=== PATIENT | male | born 1955 | race Caucasian/White ===

== ENCOUNTER 2019-01-14 15:19 | Emergency (ER) | payer MEDICAID, SELFPAY ==
[2019-01-14 15:20] VITALS: BP 134/66; PULSE 94; RESP 18; TEMP 36.4; O2SAT 93; BMI 32.7
--- NOTE | 2019-01-14 15:36 | ED.VISSUMM ---
- ER Visit Summary Date of Service: 01/14/19 Chief Complaint: Diffuse body rash History of Present Illness: The patient is a 63 M who states that he began to have a itchy rash on his right leg. He states that is now spread over his entire body. 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 States he went to his doctor was given itchy pills. states that she tried some hydrocortisone cream. He states now his feet are weeping and staying. He is not wearing socks. When asked what medications he is on he tells me he is in the computer. I informed him that we are not likely the clinic and we have a different system. He then hands me a piece of paper and tells me to go and do my thing. I asked if he wants me to continue asking questions or do my exam and he states just go and do something to get me better. Physical Examination: Afebrile vital signs are stable Patient has an itchy raised rash seems to coalesce on his feet. There is a exudate around the toes and the heels. The rest of his body shows discrete lesions that are heavily excoriated and slightly raised. It is present on arms legs trunk back. Emergency Department Course and Treatment: I think this is probably a contact dermatitis but now has a secondary infection of the feet. For the feet and going to write for Keflex. He is to keep his feet cool and dry. He is to wash with soap and water. I am going to give him a dose of Kenalog and a tapering dose of prednisone. I will refer him to dermatology. Impression: 1. Contact dermatitis with secondary bacterial infection This note was generated with [employer] dictation software. It may contain incorrect words, spelling, and punctuation that were not noted in review of the chart prior to signing ED Disposition - Plan for ED Patient: Disposition: Home or Assisted Living Instructions: Contact Dermatitis Prescriptions: Cephalexin [Keflex] 500 mg PO Q6 #40 cap Prescription Printed Prednisone 10 mg PO DAILY #63 tab Prescription Printed Referrals: Terry Plata MD [Primary Care Provider] - As soon as possible Cristina Keller [NON-STAFF] - As soon as possible Additional Instructions: You need to keep the feet cool and dry. Wash at least once or twice a day with soap and water. You need to see dermatology as soon as possible. I would also recommend you seen your family doctor as soon as possible. I recommend taking Benadryl 25 mg every 8 hours for itching.
[2019-01-14] MEDS: Triamcinolone Acetonide 40 MG/ML Vial 80 MG IM (16:05)
== END 2019-01-14 16:16 | disposition home or self-care (01) ==
PROVIDERS: Emergency Provider Emergency Medicine; Family Provider Family Medicine; PCP Family Medicine
DX: L25.9 Unspecified contact dermatitis, unspecified cause (principal); A49.9 Bacterial infection, unspecified; I48.91 Unspecified atrial fibrillation; I10 Essential (primary) hypertension
CPT/HCPCS: 96372; 99282

== ENCOUNTER 2019-04-24 12:52 | Emergency (ER) | payer MEDICAID, SELFPAY ==
[2019-04-24 12:53] VITALS: BP 136/80; PULSE 91; RESP 16; TEMP 36.7; O2SAT 95; BMI 34.7
[2019-04-24 13:24] VITALS: BP 140/75; PULSE 85; RESP 15; O2SAT 98
--- NOTE | 2019-04-24 13:29 | ED.VIS.GEN ---
History of Present Illness Chief Complaint: Rash Informant: Patient Onset: Days Context: Sudden Onset Timing: Continuous Quality: Puritic erythematous rash Location: Generalized Current Severity: Mild Maximum Severity: Moderate Worsened by: Itching Relieved by: Nothing Associated Symptoms: Areas of excoriation Narrative: Patient is a 63-year-old male who was seen in December/January for similar presentation. He was diagnosed with contact dermatitis with secondary infection. 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 He complains of pruritic erythematous rash. There is multiple areas of excoriation and worsening of the erythema. He has no exposure to the outdoors i.e. poison traci, poison sumac etc. patient denies history of benign prostatic hypertrophy or trouble urinating. Prior similar symptoms: Yes Recent Illness/Hospitalization: No - Past Medical History (1) No significant past medical history Status: Acute Past Medical History - Allergies and Home Meds Allergies/Adverse Reactions: Allergies Penicillins [PCN] Allergy (Verified 04/24/19 12:54) Unknown Primary Care Physician: Terry Plata MD [Primary Care Provider] - Prior records reviewed: Yes Surgical History: no surgical history Lives: Spouse/ Significant Other Smoking Status: Former smoker Alcohol: None Drugs: None Review of Systems General: Denies: Chills, Fever, Malaise, Sweats Cardiovascular: Denies: Chest pain, Palpitations Respiratory: Denies: Dyspnea, Cough, Dyspnea on exertion Skin: Reports: Rash, Wounds - Cuate to scratching. Denies: Abscess, Abrasions Hematologic: Denies: Easy bruising, Easy bleeding Allergy: Denies: Uticaria, Swelling of the mouth, Swelling of the tongue Physical Exam Vital Signs/Narrative: Vital Signs Temp Pulse Resp BP Pulse Ox 04/24/19 13:24 85 15 140/75 H 98 04/24/19 12:53 98.1 F 91 16 136/80 H 95 Inital Vital Signs reviewed: Yes General: Well nourished, Well developed, No Acute Distress Head: Normocephalic, Atraumatic Eyes: Perrl, EOMI. Negative for: Pale conjunctiva, Scleral icterus ENT: Moist mucous membranes, No rhinorrhea Neck: Supple, Nontender, No lymphadenopathy, No JVD Cardiovascular: Regular rate, Regular rhythm, No murmurs, Normal S1, Normal S2 Respiratory: No distress, CTA bilaterally, Chest nontender Extremities: No edema Skin: Normal color, Rash - Inflammatory skin lesions with areas of excoriation and Neurological: Alert, Oriented x3, Cranial nerves II-XII grossly intact, Normal Strength, Normal Sensation Psychological: Normal affect, Normal Mood Diagnostic/Tx/Re-eval - Medical Decision Making Patient has evidence of contact dermatitis with secondary infection secondary to areas of excoriation. Since patient is alert to penicillin he was prescribed doxycycline. He also was placed on tapering dose of prednisone. ED Disposition - Plan for ED Patient: Disposition: Home or Assisted Living Diagnosis: Contact dermatitis, Cellulitis Instructions: Cellulitis, Contact Dermatitis Prescriptions: Doxycycline 100 mg PO BID #14 cap Prescription Printed Prednisone 10 mg PO UD #33 tab Prescription Printed Referrals: Terry Plata MD [Primary Care Provider] - 3-5 Days
[2019-04-24 13:51] VITALS: BP 139/80; PULSE 80; RESP 14; O2SAT 98
[2019-04-24] MEDS: Doxycycline 100 MG CAPSULE PO (13:59)
[2019-04-24] MEDS: hydrOXYzine 10 MG Tablet PO (13:59)
[2019-04-24] MEDS: predniSONE 20 MG Tablet 60 MG PO (13:59)
== END 2019-04-24 14:00 | disposition home or self-care (01) ==
LOC: ED 13:56
PROVIDERS: Emergency Provider Emergency Medicine; Family Provider Family Medicine; PCP Family Medicine
DX: L25.9 Unspecified contact dermatitis, unspecified cause (principal); L03.90 Cellulitis, unspecified; Z88.0 Allergy status to penicillin; Z87.891 Personal history of nicotine dependence
CPT/HCPCS: 99283

== ENCOUNTER → 2019-07-11 09:45 | Outpatient (CLI) | payer MEDICAID, SELFPAY ==
[2019-07-11 12:26] LABS: Absolute Lymphocyte Count 1.79 X10^3/uL (0.83-4.51); Absolute Neutrophil Count 6.7 X10^3/uL (2.0-7.7); Basophil% 0.9 % (0-1); Eosinophil# 1.14 X10^3/uL; Eosinophils% 10.6 % (0-5); Hematocrit 42.7 % (40-54); Hemoglobin 13.9 g/dL (13.0-16.5); Lymphocyte # 1.79 X10^3/ul (4.0); Lymphocyte % 16.6 % (19-41); Mean Corp Hgb Conc 32.6 g/dL (32-36); Mean Corpuscular Volume 86.1 fL (80-94); Mean Platelet Vol. 9.2 fl (6.2-12.0); Monocyte# 1.02 X10^3/uL; Monocyte% 9.5 % (0-10); NRBC Flagged by Analyzer 0 % (0-5); Neutrophil # 6.71 X10^3/uL (2.7-7.7); Neutrophil % 62.1 % (47-70); Platelet Count 334 K/mm3 (150-450); RBC Distribution Width SD 40.4 fl (35.1-43.9); Red Blood Count 4.96 M/mm3 (4.6-6.2); White Blood Count 10.8 K/mm3 (4.4-11.0)
[2019-07-11 12:42] LABS: ALB/GLOB Ratio 0.8 RATIO (0.9-2.4); AST(SGOT) 18 U/L (15-37); Alanine Aminotransfer ALT/SGPT 24 U/L (16-61); Albumin, Serum 3.6 g/dL (3.2-5.0); Alkaline Phosphatase 91 U/L (45-117); Anion Gap 10 (5-15); BUN 7 mg/dL (7-18); BUN/Creat Ratio 8.7 RATIO (10-20); Calcium,Total 8.7 mg/dL (8.5-10.1); Chloride 95 mmol/L (98-107); EST Glomerular Filtration Rate 104 mL/min (>60); Est Glom Filt Rate - Afr Amer 126 mL/min (>60); Globulin 4.7 g/dL (2.2-4.2); Glucose 148 mg/dL (74-106); Potassium 3.5 mmol/L (3.5-5.1); Protein, Total 8.3 g/dL (6.4-8.2); Sodium Level 130 mmol/L (136-145)
== END ==
PROVIDERS: Family Provider Family Medicine; PCP Family Medicine
DX: L30.9 Dermatitis, unspecified (principal)
CPT/HCPCS: 36415; 80053; 85025

== ENCOUNTER 2025-04-25 11:00 | Inpatient (IN) | payer MEDICARE, MEDICAID, SELFPAY ==
[2025-04-25] VITALS (9 sets, daily range): BP systolic 118–158; BP diastolic 79–97; PULSE 76–100; RESP 14–20; TEMP 35.8–36.4; O2SAT 91–99; BMI 28.3; BMI 27.2
--- NOTE | 2025-04-25 11:22 | ED.RN ---
pt. states 'i aint fucking staying here over night
--- NOTE | 2025-04-25 11:31 | EX.ED.DYSGE1 ---
HPI History of Present Illness Chief Complaint: Head Injury Narrative Narrative: Patient is a 69-year-old male presenting to the emergency department for change in behavior. Brought in by family friend helps care for himself. History was obtained from primary care doctor, Dr. Plata, who called over prior to the evaluation of the patient. Over the past few months the patient has been acting differently per family friend/access control officer. States that before he started acting differently he did trip and fall on his trailer steps striking the front of his head he did not have any imaging done of his head. Over the past week she states that he has been acting more bizarre and confused. She does not think he has been taking his medications. Patient unable to provide history. 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 Denies any other drug use. PFSH PFS Home Medications ?Medication ?Instructions ?Recorded ?Last Taken ?Type amlodipine 10 mg tablet 10 mg PO DAILY 04/25/25 Unknown History aspirin 81 mg tablet,delayed 81 mg PO DAILY 04/25/25 Unknown History release atorvastatin 20 mg tablet 20 mg PO DAILY 04/25/25 Unknown History digoxin 125 mcg (0.125 mg) tablet 125 mcg PO DAILY 04/25/25 Unknown History lisinopril 40 mg tablet 40 mg PO DAILY 04/25/25 Unknown History metformin 500 mg tablet 500 mg PO BID 04/25/25 Unknown History metoprolol succinate 200 mg 200 mg PO DAILY 04/25/25 Unknown History tablet,extended release 24 hr Allergy/AdvReac Type Severity Reaction Status Date / Time Penicillins (PCN) Allergy Unknown Verified 04/25/25 11:02 Social History Smoking Status: Former smoker ROS ROS ED ROS Narrative see HPI EXAM Physical Exam Narrative Exam Narrative: Vital signs: Reviewed General: Alert and orientedx1. No acute distress. Disheveled appearing HEENT: Head is normocephalic and atraumatic, sinuses nontender, pupils 2 mm equal round and reactive. Nares are patent. Oropharynx and throat exams normal. Neck: Supple without lymphadenopathy nontender Cardiovascular: Regular rate and rhythm, no murmurs. No rubs or gallops. Normal S1 and S2 Respiratory: Clear to auscultation bilaterally. No wheezes, rales, rhonchi Abdominal: Soft and nontender. Normal bowel sounds. No guarding or rebound. Nonsurgical abdomen Extremities: No tenderness. No bruising. Normal range of motion. Normal sensation. Skin: No rash or redness. Neurological: Cranial nerves II through XII are grossly intact. Normal strength and sensation. Does not participate in cerebellar testing. The rest of the physical exam is unremarkable Const Vital Signs: 04/25/25 11:02 04/25/25 11:17 04/25/25 11:31 Temperature 96.4 F L Temperature Source Temporal Pulse Rate 82 Respiratory Rate 18 Blood Pressure 158/97 H 143/97 H Blood Pressure Mean 117 112 Blood Pressure Source Blood Pressure Position Blood Pressure Location Pulse Ox 97 98 Oxygen Delivery Method Room Air 04/25/25 11:39 Temperature Temperature Source Pulse Rate 77 Respiratory Rate 20 H Blood Pressure 143/97 H Blood Pressure Mean 112 Blood Pressure Source Monitor Blood Pressure Position Semi-Fowlers Blood Pressure Location Left Arm Pulse Ox Oxygen Delivery Method Room Air MDM MDM MDM Narrative Medical decision making narrative: Patient is a 69-year-old male presenting to the emergency department for change in behavior over the past few months that is worsened over the past week. Patient was seen and examined. Vitals are stable. Patient resting bed comfortably in no acute distress. He is disheveled appearing. Unknown last drink. Patient asking to leave. He is alert and orientedx1, does not have capacity to leave AMA. Labs were done yesterday at primary care doctor visit and were reviewed by myself. Labs were reviewed by myself and uploaded in the chart as well, I do not think it is necessary to repeat the large portion these labs however will obtain a repeat CBC, BMP and magnesium levels. On my review he was hyponatremic yesterday at 125. TSH was within normal limits. Negative syphilis testing. Normal B12 level. Normal folate level. Digoxin level was low consistent with him not taking his medications. CBC with no leukocytosis and mild anemia of 12.9. No priors to compare to. CT of the brain done today showed acute to subacute infarct within the left temporal and occipital lobes. Minimal petechial blood products. Chronic changes noted. Given this imaging was done today I again do not think that this needs repeated here. Patient given thiamine here. [facility] protocol ordered. CBC here with no leukocytosis and anemia of 12.6. BMP with glucose of 136. Sodium of 122, small fluid bolus started. I think this is likely chronic in nature from his alcohol use so we will slowly rehydrate to the level up. Alcohol level of 39.6. Hypomagnesia him of 1.4, 2 g ordered. Ammonia level also ordered. At this point I think the patient does not need any other labs or imaging here in the emergency department for admission. I spoke to Dr. Ayala who requested that the patient have a CTA of the head and neck done today prior to admission. The patients neuro exam is nonfocal, I do not think he needs a CTA to rule out LVO however it was requested by hospitalist. Patient did become agitated here in the emergency department and took his IV out asking to leave. He does not have capacity to leave. IM Haldol given. Patient will be admitted to PCU for further management of his infarcts and AMS. Clinical impression: AMS Left temporal and occiptal lobe infarcts Hyponatremia Hypomagnesia Medication noncompliant History & Record Review Discussion w/independent historian: Family Additional record(s) reviewed:: Prior outpatient record and Prior labs Lab Data Attestation: I reviewed the patient's lab results. Labs: Laboratory Results - last 24 hr 04/25/25 11:30 WBC 6.1 RBC 4.32 L Hgb 12.6 L Hct 36.5 L MCV 84.5 MCH 29.2 MCHC 34.5 RDW Std Deviation 39.4 RDW Coeff of Gin 12.9 Plt Count 248 MPV 8.9 Immature Gran % (Auto) 0.500 Neut % (Auto) 74.3 H Lymph % (Auto) 13.7 L Wilson % (Auto) 9.2 Eos % (Auto) 1.6 Baso % (Auto) 0.7 Absolute Neuts (auto) 4.5 Absolute Lymphs (auto) 0.83 Nucleated RBC % 0 Sodium 122 L Potassium 3.7 Chloride 88 L Carbon Dioxide 20.7 L Anion Gap 14 BUN 2 L Creatinine 0.65 L Estim Creat Clear Calc 116.31 Est GFR (MDRD) Non-Af 104 BUN/Creatinine Ratio 3.7 L Glucose 136 H Calcium 9.0 Magnesium 1.4 L Ethyl Alcohol 39.6 H Discharge Plan Triage Chief Complaint: Head Injury ED Provider: Tran Green Dx/Rx/DC Orders Prescriptions: No Action metformin 500 mg tablet 500 mg PO BID atorvastatin 20 mg tablet 20 mg PO DAILY metoprolol succinate 200 mg tablet extended release 24 hr 200 mg PO DAILY aspirin 81 mg tablet,delayed release (DR/EC) 81 mg PO DAILY amlodipine 10 mg tablet 10 mg PO DAILY digoxin 125 mcg (0.125 mg) tablet 125 mcg PO DAILY lisinopril 40 mg tablet 40 mg PO DAILY Primary Care Provider: Terry Plata Referrals: Terry Plata MD [Primary Care Provider, Medical] Print Language: Italian
[2025-04-25 11:38] LABS: Hematocrit 36.5 % (40-54); Hemoglobin 12.6 g/dL (13.0-16.5); Immature Granulocytes Count 0.030 X10^3/uL (0.0-0.0); Mean Corp Hgb Conc 34.5 g/dL (32-36); Mean Corpuscular Volume 84.5 fL (80-94); Mean Platelet Vol. 8.9 fl (6.2-12.0); NRBC Flagged by Analyzer 0 % (0-5); Platelet Count 248 K/mm3 (150-450); RBC Distribution Width CV 12.9 % (11.6-14.6); RBC Distribution Width SD 39.4 fl (35.1-43.9); Red Blood Count 4.32 M/mm3 (4.6-6.2); White Blood Count 6.1 K/mm3 (4.4-11.0)
--- NOTE | 2025-04-25 11:48 | ED.RN ---
pt. ripped out PIV
--- NOTE | 2025-04-25 11:59 | PCM.HP.STD ---
[facility] - General General Date of Admission: 04/25/25 Date of Service: 04/25/25 Chief Complaint: Outpatient diagnosis of brain infarct on CT scan. Abnormal behavior. HPI Narrative KELTON DESAI, is a 69 M who has noticed change in behavior for past few weeks and acting different bizarre, confused and does not remember more than his baseline after a trip and fall of the trailer steps striking the front of the head 2 months ago but he does not remember. He had an outpatient workup by PCP for progressive cognitive decline and 27 pound unintended weight loss following trip and fall and head injury about 2 months ago. He was brought to ED by his friend Mercedes with recent memory deficit. He does not take denies remember even friend's name or face. Having difficulty using his phone and not able to make phone calls. Denies headache, change in his speech, difficulty in pronunciation and verbalizing or facial droop. Denies acute vision loss focal weakness or numbness of extremity. History of chronic alcohol use since teenage and has alcoholic cardiomyopathy. Recently had decrease in the alcohol intake. Quit smoking on 03/01/2005. Patient had CTA head and neck in ER and further admitted for complete workup of stroke. [facility] Medical History Alcohol abuse Cardiomyopathy Diabetes Hypertension Home Medications ?Medication ?Instructions ?Recorded ?Last Taken ?Type amlodipine 10 mg tablet 10 mg PO DAILY 04/25/25 04/24/25 History aspirin 81 mg tablet,delayed 81 mg PO DAILY 04/25/25 04/25/25 History release atorvastatin 20 mg tablet 20 mg PO DAILY 04/25/25 04/24/25 History digoxin 125 mcg (0.125 mg) tablet 125 mcg PO DAILY 04/25/25 04/24/25 History lisinopril 40 mg tablet 40 mg PO DAILY 04/25/25 04/24/25 History metformin 500 mg tablet 500 mg PO BID 04/25/25 04/24/25 History metoprolol succinate 200 mg 200 mg PO DAILY 04/25/25 04/24/25 History tablet,extended release 24 hr Allergy/AdvReac Type Severity Reaction Status Date / Time Penicillins (PCN) Allergy Unknown Verified 04/25/25 14:19 Social History Smoking Status: Former smoker ROS ROS Narrative 14 system ROS incomplete because of patient's cognitive decline and poor memory. With help of patient's friend, patient did not finish his schooling because of decreased cognitive skill. Exact school grading not known. Chronic alcoholism since very early age with heavy drinking. He denies burning micturition increased frequency or urgency. No nausea or vomiting. No acute headache. No visual change. Review of Systems ROS Unobtainable: due to mental condition and due to mental status Vital Signs Vital Signs Vital Signs: 04/25/25 11:02 04/25/25 11:17 04/25/25 11:31 Temperature 96.4 F L Temperature Source Temporal Pulse Rate 82 Respiratory Rate 18 Blood Pressure 158/97 H 143/97 H Blood Pressure Mean 117 112 Blood Pressure Source Blood Pressure Position Blood Pressure Location Pulse Ox 97 98 Oxygen Delivery Method Room Air 04/25/25 11:39 Temperature Temperature Source Pulse Rate 77 Respiratory Rate 20 H Blood Pressure 143/97 H Blood Pressure Mean 112 Blood Pressure Source Monitor Blood Pressure Position Semi-Fowlers Blood Pressure Location Left Arm Pulse Ox Oxygen Delivery Method Room Air Weight Weight: 226 lb 6.4 oz Body Mass Index (BMI) 28.3 Physical Exam Narrative General: Awake, intermittent confusion, poor memory. Does not seem agitated. HEENT: Atraumatic, PERRLA, EOMI, Normocephalic. Oral: No Gingival or Mucosal Lesions/ Ulcerations Neck: Supple, No JVD, Negative Carotid Bruits Chest wall/Lungs: Air entry diminished in bilateral lung bases. No crepitation/rhonchi Cardiovascular: Regular rate and rhythm, Normal S1,S2, No M/G/R Abdomen: Bowel Sounds Present, Soft, Non Tender, Non-Distended : No dysuria. No renal angle tenderness. No suprapubic tenderness. Extremities: No edema, Capillary Refill Less than 3 Seconds Skin: No rashes, No breakdown Musculoskeletal: No Tenderness to Palpation of Joints or Extremities Neurological: Detailed neuroexam unobtainable. Patient verbalizing speech but has chronic cognitive deficit Psych/Mental Status: Normal Affect, Appropriate. Results Lab / Micro Data 04/25/25 11:30 04/25/25 11:30 Labs: Laboratory Results - last 24 hr 04/25/25 11:30: WBC 6.1, RBC 4.32 L, Hgb 12.6 L, Hct 36.5 L, MCV 84.5, MCH 29.2, MCHC 34.5, RDW Std Deviation 39.4, RDW Coeff of Gin 12.9, Plt Count 248, MPV 8.9, Immature Gran % (Auto) 0.500, Neut % (Auto) 74.3 H, Lymph % (Auto) 13.7 L, [place] % (Auto) 9.2, Eos % (Auto) 1.6, Baso % (Auto) 0.7, Absolute Neuts (auto) 4.5, Absolute Lymphs (auto) 0.83, Nucleated RBC % 0 Assessment & Plan Assessment/Plan (1) Focal infarction of brain: PLAN: Plan This 69-year-old gentleman was admitted with acute on chronic decline in memory, abnormal bizarre behavior not on baseline after 2 months of head injury got worse in last few weeks 1. CT diagnosis of acute/subacute infarct involving posterior left temporal lobe occipital lobes:. Patient is being admitted in PCU for stroke workup. Outpatient office note from 04/24/[address] Plata reviewed. It is scanned in the chart.Outpatient CT head reporting on 04/25, impression acute/subacute infarct within posterior left temporal and occipital lobes. Minimal petechial blood products. No evidence of intracranial mass or extra-axial fluid collection or mass effect. CTA head and neck in ED shows large left temporoparietal infarction. No significant head or neck vascular stenosis. Patient does not meet criteria for stroke alert time of last known well is unknown. Neurology consulted. PT, OT, speech therapy/swallow evaluation and management, nursing NIH stroke scale, BP and glucose monitoring and control as per stroke protocol. TSH, A1c fasting lipid profile tomorrow AM. MRI brain and 2D echo with bubble contrast study ordered Lipid profile including triglyceride, HDL, LDL and non-HDL cholesterol and VLDL are normal. 2. Recent weight loss with behavioral abnormality with chronic alcohol use, loss of memory/acute on chronic cognitive decline: Recent blood work shows A1c 6.4%. TSH 1.63. B12 124. Folate 5.4. ESR 5. Prealbumin 17. Syphilis treponemal screen nonreactive. Patient had 27 pound weight loss over last 2 months after head injury. 3. 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 On baby aspirin 81 mg daily. On digoxin 125 mcg daily. Unclear region of digoxin. Twelve-lead EKG ordered 4. Hypertension: Patient on amlodipine, lisinopril and metoprolol succinate 5. 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 Due to falls, moderate risk: Lovenox 40 mL subcu daily ordered. Discontinue if platelet count drops less than 50,000 or hemoglobin less than 8 g% with moderate risk Living will/advanced directive/end of life care: Patient does not have living will or advanced directive. There is no dizziness or power of maintenance electrician for health. His friend Elham present in ED. After discussion of benefits/risks procedures involved with full code, DNR CC arrest and DNR CC with his friend, she opted for full code as patient lacks understanding and decision making Ability about the complex advanced directive. Patient does want artificial life support including intubation, tube feed, ventilator and/chest compression, central venous catheter, vasopressor and DC shock if needed Total time spent in [id number] encounter in discussion of advanced directive 17 minutes. Clinical Impression(s) from Imaging Studies Head/Neck CTA 04/25/25 12:06 IMPRESSION: Large left temporoparietal infarction. No significant head or neck vascular stenosis. Stroke Alert: Left hemispheric territorial infarction. No hemodynamically significant stenosis on CTA. The critical findings in the findings and impression above were relayed directly by me by telephone to Tran Green on 04/25/2025 at 2:08 pm with readback verification. Reading Location: [facility] Laboratory Results 04/25/25 11:30: WBC 6.1, RBC 4.32 L, Hgb 12.6 L, Hct 36.5 L, MCV 84.5, MCH 29.2, MCHC 34.5, RDW Std Deviation 39.4, RDW Coeff of Gin 12.9, Plt Count 248, MPV 8.9, Immature Gran % (Auto) 0.500, Neut % (Auto) 74.3 H, Lymph % (Auto) 13.7 L, [place] % (Auto) 9.2, Eos % (Auto) 1.6, Baso % (Auto) 0.7, Absolute Neuts (auto) 4.5, Absolute Lymphs (auto) 0.83, Nucleated RBC % 0, Sodium Pending, Potassium Pending, Chloride Pending, Carbon Dioxide Pending, Anion Gap Pending, BUN Pending, Creatinine Pending, Est GFR (MDRD) Non-Af Pending, BUN/Creatinine Ratio Pending, Glucose Pending, Calcium Pending, Magnesium Pending, Ethyl Alcohol Pending Charges/Coding Visit Charges Inpatient E&M: 89317 Init Hosp L3 Procedures Hospitalists Procedures: 24831 Advncd Care Plan 30 Min
[2025-04-25] MEDS: Thiamine Hydrochloride 500 MG in 0.9% Normal Saline (100mL Bag) 100 ML 200 MG IV (12:02)
--- NOTE | 2025-04-25 12:06 | CT_ITS ---
PROCEDURE: CT/CTA Head AND Neck W/ Contrast
[2025-04-25 12:11] LABS: Magnesium 1.4 mg/dL (1.5-2.2)
[2025-04-25 12:17] LABS: Anion Gap 14 (5-15); Calcium,Total 9.0 mg/dL (7.6-11.0); Carbon Dioxide 20.7 mmol/L (21.0-32.0); Chloride 88 mmol/L (98-108); Estimated Creatinine Clearance 116.31 ml/min (50-250); Glucose 136 mg/dL (70-99); Potassium 3.7 mmol/L (3.3-5.1)
[2025-04-25 12:18] LABS: Alcohol, Blood (Medical)-Serum 39.6 mg/dL (<=10.0)
[2025-04-25] MEDS: 0.9% Normal Saline (500mL Bag) 500 ML 1000 ML IV (12:35)
[2025-04-25 12:39] LABS: BUN 3 mg/dL (4-19); BUN/Creat Ratio 3.9 RATIO (10-20)
[2025-04-25] MEDS: Magnesium Sulfate 2 GM in Dextrose 5%-Water (100mL Bag) 100 ML IV (12:40)
[2025-04-25 13:03] LABS: Ammonia 33.8 umol/L (16-60)
[2025-04-25] MEDS: Ziprasidone IM 20 MG/ML VIAL 10 MG IM (13:20)
[2025-04-25] MEDS: 0.9% Normal Saline (1000mL) 1,000 ML 75 ML IV (13:45)
--- NOTE | 2025-04-25 15:34 | CM.ED ---
Social Work SW met with patient and patients friend, Elham. Elham states she and her mother have been a senior living friend of patient and try to help him as they are able and as he allows. Elham states that she helps with meals and groceries, her mother helps with bills, and patient has several other friends that help with transportation or other needs. Elham states that patient lives alone and that his trailer has electricity, water and heat. Elham states that she does not believe patient would accept any other assistance other than what is currently being provided. Elham asked about OA paperwork, SW explained that the patient would have to have the capacity to make that decision and explained if he was able to initiate paperwork at a later date, [facility] could assist. No further needs identified at this time. Ariela Cotto, VOICE OVER ANNOUNCER, WOODWORKING SHOP LABORER
[2025-04-25] MEDS: proMETHazine 25 MG/ML Syringe 12.5 MG IM (20:14)
--- NOTE | 2025-04-25 21:45 | NURSING ---
1944- friend/computer processing scheduler left and pt became agitated. security present and code navneet called. haldol and phenergan given.
[2025-04-25] MEDS: Senna/Docusate Sodium 1 Tablet 2 TABLET PO (21:57)
[2025-04-26 02:00] VITALS: BP 140/77; PULSE 87; RESP 18; TEMP 36.4; O2SAT 94
[2025-04-26 03:33] VITALS: BMI 27.1
[2025-04-26 06:00] VITALS: BP 140/84; PULSE 72; RESP 18; TEMP 36.7; O2SAT 98
--- NOTE | 2025-04-26 07:17 | PN.HOSP_ITS ---
Reason for Visit
--- NOTE | 2025-04-26 07:17 | PCM.PN.HOSP ---
Reason for Visit Chief Complaint: Outpatient diagnosis of brain infarct on CT scan. Abnormal behavior. Objective Data Objective Data Vital Signs: Vital Signs Temp Pulse Resp BP Pulse Ox O2 Del Method 98.0 F 72 18 140/84 H 98 Room Air 04/26/25 06:00 04/26/25 06:00 04/26/25 06:00 04/26/25 06:00 04/26/25 06:00 04/26/25 06:00 Oxygen Delivery Method Room Air Weight: 223 lb 1.725 oz Body Mass Index (BMI) 27.1 Intake & Output: Intake and Output for Last 24 Hours 04/24/25 04/25/25 04/26/25 23:59 23:59 23:59 Intake Total 972.75 / 972.75 Output Total 0 / 0 Balance 972.75 / 972.75 Lab / Micro Data 04/25/25 11:30 04/25/25 11:30 Labs: Laboratory Results - last 24 hr 04/25/25 11:30: WBC 6.1, RBC 4.32 L, Hgb 12.6 L, Hct 36.5 L, MCV 84.5, MCH 29.2, MCHC 34.5, RDW Std Deviation 39.4, RDW Coeff of Gin 12.9, Plt Count 248, MPV 8.9, Immature Gran % (Auto) 0.500, Neut % (Auto) 74.3 H, Lymph % (Auto) 13.7 L, [place] % (Auto) 9.2, Eos % (Auto) 1.6, Baso % (Auto) 0.7, Absolute Neuts (auto) 4.5, Absolute Lymphs (auto) 0.83, Nucleated RBC % 0, Sodium 122 L, Potassium 3.7, Chloride 88 L, Carbon Dioxide 20.7 L, Anion Gap 14, BUN 3 L, Creatinine 0.65 L, Estim Creat Clear Calc 116.31, Est GFR (MDRD) Non-Af 104, BUN/Creatinine Ratio 3.9 L, Glucose 136 H, Hemoglobin A1c 6.3 H, Calcium 9.0, Magnesium 1.4 L, TSH 1.170, Ethyl Alcohol 39.6 H 04/25/25 12:20: Ammonia 33.8 04/25/25 22:00: POC Glucose 115 H 04/26/25 06:07: POC Glucose 119 H Radiography Diagnostic Testing: Radiology Impression Head/Neck CTA 04/25/25 12:06 IMPRESSION: Large left temporoparietal infarction. No significant head or neck vascular stenosis. Stroke Alert: Left hemispheric territorial infarction. No hemodynamically significant stenosis on CTA. The critical findings in the findings and impression above were relayed directly by me by telephone to Tran Green on 04/25/2025 at 2:08 pm with readback verification. Reading Location: [facility] Physical Exam Narrative Patient agitated, and at times agitated. Code alert was called in the morning. Patient refusing for labs. Patient using bad/obscene language. Physical exam General: Awake, disoriented, agitated and at times combative He said to leave the room. Discussed with nursing staff he is agitated, using obscene language with mild open eyes. Looks combative. Could not do complete physical exam Discussed with patient's friendkwabena Assessment & Plan Assessment/Plan (1) Focal infarction of brain: PLAN: Plan This 69-year-old gentleman was admitted with acute on chronic decline in memory, abnormal bizarre behavior not on baseline after 2 months of head injury got worse in last few weeks 1. CT diagnosis of acute/subacute infarct involving posterior left temporal lobe occipital lobes:. Patient is being admitted in PCU for stroke workup. Outpatient office note from 04/24/[address] Plata reviewed. It is scanned in the chart.Outpatient CT head reporting on 04/25, impression acute/subacute infarct within posterior left temporal and occipital lobes. Minimal petechial blood products. No evidence of intracranial mass or extra-axial fluid collection or mass effect. CTA head and neck in ED shows large left temporoparietal infarction. No significant head or neck vascular stenosis. Patient does not meet criteria for stroke alert time of last known well is unknown. Neurology consulted. PT, OT, speech therapy/swallow evaluation and management, nursing NIH stroke scale, BP and glucose monitoring and control as per stroke protocol. TSH, A1c fasting lipid profile tomorrow AM. MRI brain and 2D echo with bubble contrast study ordered Lipid profile including triglyceride, HDL, LDL and non-HDL cholesterol and VLDL are normal. 04/26: Patient agitated, disoriented and combative. Using foul language. GCS scale 14. Nursing NIH stroke scale 5 with mild language deficit dysarthria and answering wrong LOC questions. I talked to patient's friend, Ms. Long informed about situation. Alem toth was called in the morning. Patient on IV Haldol, Phenergan. Was started on Risperdal 0.5 mg twice daily yesterday. Refused for labs today. No imaging done. A1c 6.3%. Glucose 136. TSH 1.17. 2. Recent weight loss with behavioral abnormality with chronic alcohol use, loss of memory/acute on chronic cognitive decline: Recent blood work shows A1c 6.4%. TSH 1.63. B12 124. Folate 5.4.ESR 5. Prealbumin 17. Syphilis treponemal screen nonreactive. Patient had 27 pound weight loss over last 2 months after head injury. 3. 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 On baby aspirin 81 mg daily. On digoxin 125 mcg daily. Unclear region of digoxin. Twelve-lead EKG ordered 4. Hypertension: Patient on amlodipine, lisinopril and metoprolol succinate 5. 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 Due to falls, moderate risk: Lovenox 40 mL subcu daily ordered. Discontinue if platelet count drops less than 50,000 or hemoglobin less than 8 g% with moderate risk Hyponatremia: Patient on IV fluid normal saline. Refusing for labs therefore does not know follow-up serum sodium Living will/advanced directive/end of life care: Patient does not have living will or advanced directive. There is no dizziness or power of civil attorney for health. His friend Elham present in ED. After discussion of benefits/risks procedures involved with full code, DNR CC arrest and DNR CC with his friend, she opted for full code as patient lacks understanding and decision making Ability about the complex advanced directive. Patient does want artificial life support including intubation, tube feed, ventilator and/chest compression, central venous catheter, vasopressor and DC shock if needed Total time spent in [id number] encounter in discussion of advanced directive 17 minutes. Clinical Impression(s) from Imaging Studies Head/Neck CTA 04/25/25 12:06 IMPRESSION: Large left temporoparietal infarction. No significant head or neck vascular stenosis. Stroke Alert: Left hemispheric territorial infarction. No hemodynamically significant stenosis on CTA. The critical findings in the findings and impression above were relayed directly by me by telephone to Tran Green on 04/25/2025 at 2:08 pm with readback verification. Reading Location: [facility] Laboratory Results 04/25/25 11:30: WBC 6.1, RBC 4.32 L, Hgb 12.6 L, Hct 36.5 L, MCV 84.5, MCH 29.2, MCHC 34.5, RDW Std Deviation 39.4, RDW Coeff of Gin 12.9, Plt Count 248, MPV 8.9, Immature Gran % (Auto) 0.500, Neut % (Auto) 74.3 H, Lymph % (Auto) 13.7 L, [place] % (Auto) 9.2, Eos % (Auto) 1.6, Baso % (Auto) 0.7, Absolute Neuts (auto) 4.5, Absolute Lymphs (auto) 0.83, Nucleated RBC % 0, Sodium 122 L, Potassium 3.7, Chloride 88 L, Carbon Dioxide 20.7 L, Anion Gap 14, BUN 3 L, Creatinine 0.65 L, Estim Creat Clear Calc 116.31, Est GFR (MDRD) Non-Af 104, BUN/Creatinine Ratio 3.9 L, Glucose 136 H, Hemoglobin A1c 6.3 H, Calcium 9.0, Magnesium 1.4 L, TSH 1.170, Ethyl Alcohol 39.6 H 04/25/25 12:20: Ammonia 33.8 04/25/25 22:00: POC Glucose 115 H 04/26/25 06:07: POC Glucose 119 H Charges/Coding Visit Charges Inpatient E&M: 43254 Subs Hosp L2 NIHSS NIHSS Nursing Documentation NIHSS Nursing Documentation: NIH Stroke Scale Start: 04/25/25 11:18 Freq: Status: Discharge Protocol: Activity Type Activity Date Activity User E-sign Co-sign Detail Recorded Client Recorded Date Recorded By Document 04/25/25 11:18 [id number] 04/25/25 11:21 HO 04/25/25 11:18 NIH Stroke Scale [NIHSS] A score of 0 is normal or asymptomatic . Total possible score is 42. Inpatient: RN or Physician to activate a stroke alert for onset of new stroke symptoms or with NIHSS increase >/= 3 points. Following change in neurological status, NIHSS will be performed per physician order or more frequently PRN. -1a. Level of Consciousness 0 - Alert; keenly responsive -1b. LOC Questions 0 - Answers BOTH questions correctly -1c. LOC Commands 0 - Performs BOTH tasks correctly -4. Facial Palsy 0 - Normal symmetrical movements -5a. Left Arm 0 - No drift; arm holds 90 ( or 45) degrees for full 10 seconds -5b. Right Arm 0 - No drift; arm holds 90 ( or 45) degrees for full 10 seconds -6a. Left Leg 0 - No drift; leg holds 30- degree position for full 5 seconds -6b. Right Leg 0 - No drift; leg holds 30- degree position for full 5 seconds -7. Limb Ataxia 1 - Present in 1 limb -8. Sensory 0 - Normal; no sensory loss -9. Best Language 1 - Mild-to- moderate aphasia; -10. Dysarthria 0 - Normal -11. Extinction and Inattention 1 - Visual, tactile, auditory, spatial, or personal inattention; -Total 3 Query Text:A score of 0 is normal or asymptomatic. Total possible score is 42 . ED: Notify Physician for NIHSS increase by > / = 3 points. Inpatient: RN or Physician to activate a stroke alert for NIHSS increase of > / = 3 points. NIHSS: Ischemic Stroke/TIA Start: 04/25/25 15:08 Text: For PCU Patients: NIH and Neuro Check every 4 Status: Active hours, PRN and with change in RN caregiver. Freq: [id number] Protocol: Activity Type Activity Date Activity User E-sign Co-sign Detail Recorded Client Recorded Date Recorded By Document 04/26/25 06:00 MB [id number] 04/26/25 06:04 MB 04/26/25 06:00 -1a. Level of Consciousness 0 - Alert; keenly responsive -1b. LOC Questions 2 - Answers NEITHER question correctly -1c. LOC Commands 1 - Performs ONE task correctly -2. Best Gaze 0 - Normal -3. Visual 0 - No visual loss -4. Facial Palsy 0 - Normal symmetrical movements -5a. Left Arm 0 - No drift; arm holds 90 ( or 45) degrees for full 10 seconds -5b. Right Arm 0 - No drift; arm holds 90 ( or 45) degrees for full 10 seconds -6a. Left Leg 0 - No drift; leg holds 30- degree position for full 5 seconds -6b. Right Leg 0 - No drift; leg holds 30- degree position for full 5 seconds -7. Limb Ataxia 0 - Absent -8. Sensory 0 - Normal; no sensory loss -9. Best Language 1 - Mild-to- moderate aphasia; -10. Dysarthria 1 = Mild-to- moderate dysarthria; -Total 5 Query Text:A score of 0 is normal or asymptomatic. Total possible score is 42 . ED: Notify Physician for NIHSS increase by > / = 3 points. Inpatient: RN or Physician to activate a stroke alert for NIHSS increase of > / = 3 points. Coma Scale [Assess] -Eye Opening Spontaneous -Motor Obeys Commands -Verbal Confused [Total] -Coma Scale Total 14 NIHSS: Ischemic Stroke/TIA Start: 04/25/25 15:08 Text: For ICU Patients: NIH sroke scale at Status: Complete presentation and every 2 hours or with change in RN caregiver Freq: [id number] Protocol: Activity Type Activity Date Activity User E-sign Co-sign Detail Recorded Client Recorded Date Recorded By Document 04/25/25 15:31 NB [id number] 04/25/25 15:39 NB 04/25/25 15:31 NIH Stroke Scale [NIHSS] A score of 0 is normal or asymptomatic . Total possible score is 42. Inpatient: RN or Physician to activate a stroke alert for onset of new stroke symptoms or with NIHSS increase >/= 3 points. Following change in neurological status, NIHSS will be performed per physician order or more frequently PRN. -1a. Level of Consciousness 0 - Alert; keenly responsive -1b. LOC Questions 1 - Answers ONE question correctly -1c. LOC Commands 1 - Performs ONE task correctly -2. Best Gaze 0 - Normal -3. Visual 0 - No visual loss -4. Facial Palsy 0 - Normal symmetrical movements -5a. Left Arm 0 - No drift; arm holds 90 ( or 45) degrees for full 10 seconds -5b. Right Arm 0 - No drift; arm holds 90 ( or 45) degrees for full 10 seconds -6a. Left Leg 0 - No drift; leg holds 30- degree position for full 5 seconds -6b. Right Leg 0 - No drift; leg holds 30- degree position for full 5 seconds -7. Limb Ataxia 0 - Absent -8. Sensory 0 - Normal; no sensory loss -9. Best Language 1 - Mild-to- moderate aphasia; -10. Dysarthria 1 = Mild-to- moderate dysarthria; -11. Extinction and Inattention 0 - No abnormality -Total 4 Query Text:A score of 0 is normal or asymptomatic. Total possible score is 42 . ED: Notify Physician for NIHSS increase by > / = 3 points. Inpatient: RN or Physician to activate a stroke alert for NIHSS increase of > / = 3 points. Coma Scale [Assess] -Eye Opening Spontaneous -Motor Obeys Commands -Verbal Confused [Total] -Coma Scale Total 14
--- NOTE | 2025-04-26 07:31 | NURSING ---
attempted to do change of shift NIHSS w/ George JORDAN. Pt became belligerent and angry saying he does not wish to cooperate and wants to leave. Pt is wearing his own clothes lying in bed w/ no IV access at this time.
[2025-04-26 10:00] VITALS: BP 146/85; PULSE 78; RESP 15; TEMP 36.8; O2SAT 96
--- NOTE | 2025-04-26 10:31 | CASEMGMT ---
Social Work Primary Care Doctor: Dr. Plata Insurance: [employer] Medicare dual and [facility]: Patient utilizes [facility]. Advanced directives: none LNOK:. He has s sister that has Alzheimer. No family support. He has supportive friends. Marital/Social History: Patients 4 years ago. Patient cannot read or write. Living Situation: Patient lives at home alone. ADL's/Prior level of functioning: independent prior transportation: Friends transport the [facility]. jail/home health history: none Mental Health: none known Substance abuse history: history of alcohol use. Patient still drinks everyday. Assessment: ARIAN completed the assessment with the friend Elham. Elham reported she helps with meals and getting the patient groceries. Elham reported the patient lives alone in a [place]. Friends help with transporting. Elham's mother helps with paying the bills. Elham reported the patient would not be interested in [facility] services. Elham reported patient is set in his ways. Patient cannot use a cell phone. The patient cannot read or write. Patients 4 years ago. Patient drinks everyday. PLAN: To be determined. REBEL Fenton
--- NOTE | 2025-04-26 11:25 | NURSING ---
Pt continues to be hostile with this nurse. Pt uses profanity refuses to answer questions or follow commands for assessments of CIWA, NIHSS or shift assessment. BEVERAGE HOST reportshe is fine. Pt not cooperative with Dr Aayla. He expressed concern for safety of BEVERAGE HOST/sitter. He encouraged the use of IV haldol. After speaking [facility] charge nurse, This nurse is holding off on PRN IM haldol till family friend/stone driller arrives. She had expressed that she would be in as soon as she could.
[2025-04-26 13:04] VITALS: BMI 27.1
--- NOTE | 2025-04-26 13:08 | CON.PCM.NE_ITS ---
Assessment and Plan: Stroke
--- NOTE | 2025-04-26 13:08 | STROKE.CONS ---
Assessment and Plan: Stroke Assessment/Plan KELTON DESAI is a 69 M with a history of alcohol use disorder, alcoholic cardiomyopathy, who presents for evaluation of confusion, found to LMCA stroke. Etiology is cryptogenic - correct Na gently, recommend assistance from Nephrology if possible. No more than 10mEQ in 24 hrs - urinalysis, UA - aggressive thiamine replacement: 500mg IV q8hrs x 3 days, 250mg IV daily, then 100mg PO daily ? The following tests for stroke work-up have been/should be obtained:? ? Neuroimaging: CTH with subacute stroke in the LM2 posterior division ? Vascular imaging: no LVO/MeVO ? Cardiac testing: recommend TTE ? Cardiac monitoring: recommend telemetry in the hospital, 30 day director of cardiac rehabilitation in the hospital ? Labs: HgbA1c 6.5, LDL pending ?Permissive hypertension to goal SBP < 160 mm Hg ?Anti-platelet medication: Aspirin 81mg daily ?Statin therapy: pending LDL ?Occupational/Physical therapy consults ?NPO until swallow evaluation.? IVF until able to take po ?DVT prophylaxis with SCDs and heparin SQ. ?Vascular risk factor modification.? The following are the recommended guidelines: LDL Goal < 70 Smoking Cessation Diabetes management terminal supervisor Blood pressure control should achieve <130/80 mmHg.? BP management should aim to achieve half-way control in a reasonable amount of time, taking into consideration the individual patient's requirements and characteristics. Weight Management: Goal for BMI is 18.5-24.9 kg/m2. Alcohol: No more than 2 drinks/day for men or 1 drink/day for non- women. Promote lifestyle modification: weight control, physical activity, moderation of alcohol intake, moderate sodium intake. I personally attended this patient and spent a total time of 45min evaluating this patient including clinical assessment, review of chart, medical history, and imaging, and determining appropriate treatment and workup. HPI Consult Data Date of Consult: 04/26/25 HPI Narrative HPI Narrative: KELTON DESAI, is a 69 M who has noticed change in behavior for past few weeks and acting different bizarre, confused and does not remember more than his baseline after a trip and fall of the trailer steps striking the front of the head 2 months ago but he does not remember. He had an outpatient workup by PCP for progressive cognitive decline and 27 pound unintended weight loss following trip and fall and head injury about 2 months ago. He was brought to ED by his friend Mercedes with recent memory deficit. He does not take denies remember even friend's name or face. Having difficulty using his phone and not able to make phone calls. Denies headache, change in his speech, difficulty in pronunciation and verbalizing or facial droop. Denies acute vision loss focal weakness or numbness of extremity. History of chronic alcohol use since teenage and has alcoholic cardiomyopathy. Recently had decrease in the alcohol intake. Quit smoking on 03/01/2005. Patient had CTA head and neck in ER and further admitted for complete workup of stroke. Neurologic History No history of known stroke, never had history of sudden R sided weakness or clear aphasia - Zevia. Has had difficulty working his phones lately. Something really changed 2 weeks ago - had a blank stare and would be perseverating. Pt saw his PCP Wednesday and 6 month checkup and the stroke appearing on CTH is what prompted the admission. Patient is not clear when his last drink was but friend has noted that he has not been drinking as much the last 2 weeks. Patient is not eating well because everything tastes bad so has lost a lot of weight. Neurologic Exam Exam difficult to obtain d/t poor cooperation -? NEURO: -? Mental Status: The patient was alert and oriented to city. Baseline he may not know year/month/president. -? Language: speech is clear. Naming, repetition, fluency, and comprehension intact. -? Cranial Nerves: EOMI horizontally, clear facial asymmetry -? Motor: Upper and lower extremities equal bilaterally. -? Sensation- Intact to light touch bilaterally -? Coordination:patient is poorly cooperative on testing -? Gait- Gait initiation was normal. has slight decrease in movement of the R leg, no clear circumduction but slight limp to gait. [facility] Medical History Alcohol abuse Cardiomyopathy Diabetes Hypertension Home Medications ?Medication ?Instructions ?Recorded ?Last Taken ?Type amlodipine 10 mg tablet 10 mg PO DAILY 04/25/25 04/24/25 History aspirin 81 mg tablet,delayed 81 mg PO DAILY 04/25/25 04/25/25 History release atorvastatin 20 mg tablet 20 mg PO DAILY 04/25/25 04/24/25 History digoxin 125 mcg (0.125 mg) tablet 125 mcg PO DAILY 04/25/25 04/24/25 History lisinopril 40 mg tablet 40 mg PO DAILY 04/25/25 04/24/25 History metformin 500 mg tablet 500 mg PO BID 04/25/25 04/24/25 History metoprolol succinate 200 mg 200 mg PO DAILY 04/25/25 04/24/25 History tablet,extended release 24 hr Allergy/AdvReac Type Severity Reaction Status Date / Time Penicillins (PCN) Allergy Unknown Verified 04/25/25 14:19 Social History Smoking Status: Former smoker Vital Signs Vital Signs Vital Signs: 04/25/25 13:25 04/25/25 15:08 04/25/25 18:00 Temperature 97 F L 97.3 F L 97.5 F L Temperature Source Temporal Temporal Pulse Rate 100 76 90 Respiratory Rate 16 18 14 Respiratory Effort Respiratory Depth Blood Pressure 150/97 H 132/79 H 134/87 H Blood Pressure Mean 114 96 102 Blood Pressure Source Monitor Monitor Blood Pressure Position Semi-Fowlers Sitting Blood Pressure Location Left Arm Left Arm Pulse Ox 91 99 96 Oxygen Delivery Method Room Air Room Air 04/25/25 18:00 04/25/25 22:00 04/25/25 22:00 Temperature 96.6 F L Temperature Source Temporal Pulse Rate 81 Respiratory Rate 18 Respiratory Effort Normal Respiratory Depth Normal Blood Pressure 118/80 Blood Pressure Mean 92 Blood Pressure Source Monitor Blood Pressure Position Semi-Fowlers Blood Pressure Location Right Arm Pulse Ox 94 Oxygen Delivery Method Room Air Room Air Room Air 04/26/25 02:00 04/26/25 06:00 04/26/25 07:59 Temperature 97.6 F L 98.0 F Temperature Source Temporal Oral Pulse Rate 87 72 Respiratory Rate 18 18 Respiratory Effort Respiratory Depth Blood Pressure 140/77 H 140/84 H Blood Pressure Mean 98 102 Blood Pressure Source Monitor Monitor Blood Pressure Position Semi-Fowlers Semi-Fowlers Blood Pressure Location Right Arm Right Arm Pulse Ox 94 98 Oxygen Delivery Method Room Air Room Air Room Air 04/26/25 10:00 Temperature 98.3 F Temperature Source Oral Pulse Rate 78 Respiratory Rate 15 Respiratory Effort Respiratory Depth Blood Pressure 146/85 H Blood Pressure Mean 105 Blood Pressure Source Monitor Blood Pressure Position Supine Blood Pressure Location Right Arm Pulse Ox 96 Oxygen Delivery Method Room Air Weight Weight: 101.2 kg Body Mass Index (BMI) 27.1 EEG Results Procedure Details EEG Procedure Details: KELTON DESAI is a 69 year old M with a past medical history of , who presents for evaluation of Electroencephalogram on DATE at TIME Lab / Micro Data 04/25/25 11:30 04/25/25 11:30 Labs: Laboratory Results - last 24 hr 04/25/25 11:30: TSH 1.170 04/25/25 22:00: POC Glucose 115 H 04/26/25 06:07: POC Glucose 119 H Imaging Radiology Impression Head/Neck CTA 04/25/25 12:06 IMPRESSION: Large left temporoparietal infarction. No significant head or neck vascular stenosis. Stroke Alert: Left hemispheric territorial infarction. No hemodynamically significant stenosis on CTA. The critical findings in the findings and impression above were relayed directly by me by telephone to Tran Green on 04/25/2025 at 2:08 pm with readback verification. Reading Location: [facility] Active Medications Active Medications Active Medications: Current Medications Generic Name Dose Route Start Last Admin Trade Name Freq PRN Reason Stop Dose Admin Acetaminophen 650 mg 04/25/25 15:08 Acetaminophen 325 Mg Tablet PO Q4H PRN PRN Pain 1-10 Or Fever>99.6 Aspirin 81 mg 04/26/25 08:00 Aspirin 81 Mg Tab.Chew PO BREAKFAST LUDY Atorvastatin Calcium 80 mg 04/25/25 22:00 04/25/25 21:57 Atorvastatin Calcium 80 Mg Tablet PO 80 mg QHS LUDY Administration Enoxaparin Sodium 40 mg 04/25/25 15:08 04/25/25 19:35 Enoxaparin 40 Mg/0.4 Ml Syringe SC Not Given Q24 LUDY Glucagon 1 mg 04/25/25 20:25 Glucagon 1 Mg/Ml Syringe IM X1 PRN Hypoglycemia Protocol Haloperidol Lactate 2 mg 04/25/25 18:34 04/25/25 20:01 Haloperidol Lactate 5 Mg/Ml Vial IM 2 mg Q4H PRN PRN Administration AGITATION Protocol Hydralazine HCl 5 mg 04/25/25 15:08 Hydralazine 20 Mg/Ml Vial IV 04/26/25 15:08 Q30M PRN maintain BP parameters with HR <60 Sodium Chloride 250 mls @ 15 mls/hr 04/25/25 15:14 IV .[id number] PRN Saline Flush Sodium Chloride 250 mls @ 15 mls/hr 04/25/25 15:14 IV .[id number] PRN Additional IVPB Infusion Dextrose 250 mls @ 0 mls/hr 04/25/25 20:25 Dextrose 10%-Water IV .Q0M PRN HYPOGLYCEMIA Protocol As Directed Insulin Human Lispro 0 unit 04/25/25 22:00 04/26/25 06:08 Insulin Lispro 100 Unit/Ml Insuln.Pen SC Not Given ACHS LUDY Protocol Labetalol HCl 10 - 20 mg 04/25/25 15:08 Labetalol 20 Mg/4 Ml Vial IV 04/26/25 15:08 Q10M PRN PRN maintain BP parameters with HR >/=60 Promethazine HCl 12.5 mg 04/25/25 18:34 04/25/25 20:14 Promethazine 25 Mg/Ml Syringe IM 12.5 mg Q4H PRN PRN Administration AGITATION Quetiapine Fumarate 50 mg 04/25/25 22:00 04/25/25 21:55 Quetiapine 25 Mg Tablet PO 50 mg BID LUDY Administration Protocol Risperidone 0.5 mg 04/25/25 22:00 04/25/25 21:55 Risperidone 0.5 Mg Tablet PO 0.5 mg BID LUDY Administration Protocol Senna/Docusate Sodium 2 tablet 04/25/25 22:00 04/25/25 21:57 Senna/Docusate Sodium 1 Tablet PO 2 tablet BID LUDY Administration Sodium Chloride 10 - 40 ml 04/25/25 15:14 0.9% Saline Lock 10 Ml Syringe IV UD PRN SALINE FLUSH NIHSS NIHSS Nursing Documentation NIHSS Nursing Documentation: NIH Stroke Scale Start: 04/25/25 11:18 Freq: Status: Discharge Protocol: Activity Type Activity Date Activity User E-sign Co-sign Detail Recorded Client Recorded Date Recorded By Document 04/25/25 11:18 [id number] 04/25/25 11:21 HO 04/25/25 11:18 NIH Stroke Scale [NIHSS] A score of 0 is normal or asymptomatic . Total possible score is 42. Inpatient: RN or Physician to activate a stroke alert for onset of new stroke symptoms or with NIHSS increase >/= 3 points. Following change in neurological status, NIHSS will be performed per physician order or more frequently PRN. -1a. Level of Consciousness 0 - Alert; keenly responsive -1b. LOC Questions 0 - Answers BOTH questions correctly -1c. LOC Commands 0 - Performs BOTH tasks correctly -4. Facial Palsy 0 - Normal symmetrical movements -5a. Left Arm 0 - No drift; arm holds 90 ( or 45) degrees for full 10 seconds -5b. Right Arm 0 - No drift; arm holds 90 ( or 45) degrees for full 10 seconds -6a. Left Leg 0 - No drift; leg holds 30- degree position for full 5 seconds -6b. Right Leg 0 - No drift; leg holds 30- degree position for full 5 seconds -7. Limb Ataxia 1 - Present in 1 limb -8. Sensory 0 - Normal; no sensory loss -9. Best Language 1 - Mild-to- moderate aphasia; -10. Dysarthria 0 - Normal -11. Extinction and Inattention 1 - Visual, tactile, auditory, spatial, or personal inattention; -Total 3 Query Text:A score of 0 is normal or asymptomatic. Total possible score is 42 . ED: Notify Physician for NIHSS increase by > / = 3 points. Inpatient: RN or Physician to activate a stroke alert for NIHSS increase of > / = 3 points. NIHSS: Ischemic Stroke/TIA Start: 04/25/25 15:08 Text: For PCU Patients: NIH and Neuro Check every 4 Status: Active hours, PRN and with change in RN caregiver. Freq: [id number] Protocol: Activity Type Activity Date Activity User E-sign Co-sign Detail Recorded Client Recorded Date Recorded By Document 04/26/25 10:00 [id number] 04/26/25 10:22 04/26/25 10:00 -1a. Level of Consciousness 0 - Alert; keenly responsive -1b. LOC Questions 0 - Answers BOTH questions correctly -1c. LOC Commands 0 - Performs BOTH tasks correctly -2. Best Gaze 0 - Normal -3. Visual 0 - No visual loss -4. Facial Palsy 0 - Normal symmetrical movements -5a. Left Arm 0 - No drift; arm holds 90 ( or 45) degrees for full 10 seconds -5b. Right Arm 0 - No drift; arm holds 90 ( or 45) degrees for full 10 seconds -6a. Left Leg 0 - No drift; leg holds 30- degree position for full 5 seconds -6b. Right Leg 0 - No drift; leg holds 30- degree position for full 5 seconds -7. Limb Ataxia 0 - Absent -8. Sensory 0 - Normal; no sensory loss -9. Best Language 1 - Mild-to- moderate aphasia; -10. Dysarthria 1 = Mild-to- moderate dysarthria; -11. Extinction and Inattention 0 - No abnormality -Total 2 Query Text:A score of 0 is normal or asymptomatic. Total possible score is 42 . ED: Notify Physician for NIHSS increase by > / = 3 points. Inpatient: RN or Physician to activate a stroke alert for NIHSS increase of > / = 3 points. Coma Scale [Assess] -Eye Opening Spontaneous -Motor Obeys Commands -Verbal Inappropriate [Total] -Coma Scale Total 13 NIHSS: Ischemic Stroke/TIA Start: 04/25/25 15:08 Text: For ICU Patients: NIH sroke scale at Status: Complete presentation and every 2 hours or with change in RN caregiver Freq: [id number] Protocol: Activity Type Activity Date Activity User E-sign Co-sign Detail Recorded Client Recorded Date Recorded By Document 04/25/25 15:31 [id number] 04/25/25 15:39 NB 04/25/25 15:31 NIH Stroke Scale [NIHSS] A score of 0 is normal or asymptomatic . Total possible score is 42. Inpatient: RN or Physician to activate a stroke alert for onset of new stroke symptoms or with NIHSS increase >/= 3 points. Following change in neurological status, NIHSS will be performed per physician order or more frequently PRN. -1a. Level of Consciousness 0 - Alert; keenly responsive -1b. LOC Questions 1 - Answers ONE question correctly -1c. LOC Commands 1 - Performs ONE task correctly -2. Best Gaze 0 - Normal -3. Visual 0 - No visual loss -4. Facial Palsy 0 - Normal symmetrical movements -5a. Left Arm 0 - No drift; arm holds 90 ( or 45) degrees for full 10 seconds -5b. Right Arm 0 - No drift; arm holds 90 ( or 45) degrees for full 10 seconds -6a. Left Leg 0 - No drift; leg holds 30- degree position for full 5 seconds -6b. Right Leg 0 - No drift; leg holds 30- degree position for full 5 seconds -7. Limb Ataxia 0 - Absent -8. Sensory 0 - Normal; no sensory loss -9. Best Language 1 - Mild-to- moderate aphasia; -10. Dysarthria 1 = Mild-to- moderate dysarthria; -11. Extinction and Inattention 0 - No abnormality -Total 4 Query Text:A score of 0 is normal or asymptomatic. Total possible score is 42 . ED: Notify Physician for NIHSS increase by > / = 3 points. Inpatient: RN or Physician to activate a stroke alert for NIHSS increase of > / = 3 points. Coma Scale [Assess] -Eye Opening Spontaneous -Motor Obeys Commands -Verbal Confused [Total] -Coma Scale Total 14 NIHSS 1a. Level of Consciousness: 0 - Alert; keenly responsive 1b. LOC Questions: 2 - Answers NEITHER question correctly 1c. LOC Commands: 0 - Performs BOTH tasks correctly 2. Best Gaze: 0 - Normal 3. Visual: 0 - No visual loss 4. Facial Palsy: 0 - Normal symmetrical movements 5a. Left Arm: 0 - No drift; arm holds 90 (or 45) degrees for full 10 seconds 5b. Right Arm: 0 - No drift; arm holds 90 (or 45) degrees for full 10 seconds 6a. Left Le - No drift; leg holds 30-degree position for full 5 seconds 6b. Right Le - No drift; leg holds 30-degree position for full 5 seconds 7. Limb Ataxia: 0 - Absent 8. Sensory: 0 - Normal; no sensory loss 9. Best Language: 1 - [id number] aphasia; 10. Dysarthria: 0 - Normal 11. Extinction and Inattention: 0 - No abnormality Total: 3
--- NOTE | 2025-04-26 14:38 | CASEMGMT ---
Social Work SW spoke with Charla from the Crisis [facility] [phone]. Charla reported they will be looking for place for the patient to [place] too. Charla reported the patient is oriented x1. Charla reported the patient is very confused. She reported the patient has not been sleeping or eating well and has lost 40 pounds. Charla reported his friend was in the room as well. REBEL Fenton
--- NOTE | 2025-04-26 15:23 | CASEMGMT ---
Social Work SW unable to complete PHQ9 due to cognitive concerns. REBEL Fenton
[2025-04-26 16:58] LABS: Mucous, Urine 0 SEEN /hpf (<or=2+); Red Blood Cells-Urine 0 SEEN /hpf (0-5); Squamous Epithelial Cells - UA 0 SEEN /hpf (0-5)
[2025-04-26 17:00] VITALS: BP 144/102; PULSE 70; RESP 15; TEMP 36.4; O2SAT 95
[2025-04-26 17:02] LABS: Color, Urine Yellow (Yellow); Glucose, Dipstick 100 mg/dl (Normal); Ketone-Dipstick Negative (Negative); Leukocyte Esterase-Dipstick Negative /ul (Negative); Nitrite-Dipstick Negative (Negative); Occult Blood-Urine Negative /ul (Negative); Protein-Dipstick Negative (Negative); Specific Gravity, Urine 1.010 (1.002-1.030); Urine Bilirubin Dipstick Negative (Negative)
--- NOTE | 2025-04-26 21:00 | NURSING ---
Pt refusing all care this evening. Refusing all PO medications, Vitals to be checked, Blood glucose checks, CIWA check, Telemetry monitoring, and became combative with staff. Security called to help deescalate the situation. PRN IM Haldol given and pt returned to bed. RN CORRECTIONAL Notified.
--- NOTE | 2025-04-27 02:54 | NURSING ---
Received call from Kay @ [facility] @ approx. 1999. Kay stated that the facility was able to accept pt. and to fax discharge paperwork and pink slip over to them and to let them know what an ETA for pt. would be. I informed her that i was not aware of any current discharge orders placed for this pt. aKy then stated that the [facility] contacted them stating that pt. was in need of placement and pt. was medically cleared for discharge. I informed Kay that i would look into it and call back with further information. While looking Dr. Ayala's notes, i didn't find any notes stating that pt. was medically cleared for discharge. Social work note from 04/26/25 states that Charla from crisis center will be looking for a place for pt. to discharge to. Was unable to contact Dr. Ayala for further information/ discharge order. I called the crisis center- spoke with representative government relations who stated that she was informed prior to making contact with [facility] that pt. was medically cleared for discharge. I informed her that i found no notes stating that this was the case, but that i would contact [facility] hospitalist to see if he felt comfortable doing this and i would call them back. Contacted Dr. Strickland and explained the situation. Because there are no notes stating that pt. is medically cleared to discharge and that he is not very familiar with this pt., he doesn't feel comfortable putting in discharge orders. I called back the Crisis center and informed them that pt. would have to wait until the morning to be reassessed and have discharge orders put in. Nitroglycerin Supervisor apologized and stated that she must have misunderstood and believed that pt. already had discharge orders. I informed her that i would contact [facility] and inform them of the sitiuation. Contacted [facility] and spoke with Tara. I explained the situation (i.e. lack of discharge orders, [facility] hospitalist not feeling comfortable discharging, etc.) Tara stated that was fine and to contact them in the morning with an update.
[2025-04-27 04:32] VITALS: BMI 27.1
[2025-04-27 06:00] VITALS: BMI 27.3
--- NOTE | 2025-04-27 06:00 | NURSING ---
Pt still refusing all care this morning. No Vital checks, Blood glucose checks, and refused AM labs again. pt resting in bed and gets worked up and yells profanity when attempting to speak about vitals or medications with pt.
--- NOTE | 2025-04-27 09:08 | PCM.HOSP.N ---
Hospitalist Note Patient was seen and examined today, he appears delusional, however, patient is medically stable at this time for transfer to a facility such as a psych facility for further care. I feel the patient is not capable of returning home, he has poor judgment and insight into his own care.
--- NOTE | 2025-04-27 09:35 | NURSING ---
Patient ambulates standby assist. Patient able to eat and drink independently without assistance.
--- NOTE | 2025-04-27 10:12 | CASEMGMT ---
Addendum entered by Eneida Yang 04/27/25 10:19: He will in the [facility]. ARIAN faxed over a copy of the pink slip to [facility]. Original Note: Social Work SW spoke with Etta at [facility] and [facility] can accept the patient today and the accepting physician is Dr. Vázquez. The nurse is to call [phone] option4 to call in report. The physician and nurse have been notified of the DC. REBEL Fenton
--- NOTE | 2025-04-27 10:32 | NURSING ---
Report called to [facility] nurse Joey.
--- NOTE | 2025-04-27 10:51 | CASEMGMT ---
Addendum entered by Eneida Yang 04/27/25 11:34: SW called [facility] to confirm that the message was received that the patient will DC from the hospital in about 45 minutes. SW spoke Joey. Original Note: Social Work SW called [facility] and notified them that the patient is being transported from the hospital in an hour. REBEL Fenton
--- NOTE | 2025-04-27 11:25 | CASEMGMT ---
Discharge Planning [facility] transport was scheduled with [facility] for 11:45p. Nursing, SW, and pts friend (Elham) updated. Kristi Daniel DC Planning Asst.
[2025-04-27 12:00] VITALS: BMI 27.3
--- NOTE | 2025-04-27 12:03 | PCM.DC.SUM ---
Providers Date of Admission: 04/25/25 Date of Discharge: 04/27/25 Primary Care Physician: Dr. Terry Plata MD Consultations 04/25/25 15:08 Consult: Tele-Neurology Routine Consulting Provider: [facility] Reason for Consult: Acute Ischemic Stroke/TIA EMERGENT Consult: No MD Notified: Yes Date Notified: 04/25/25 Time Notified: 16:08 Method of Notification: ED Physician Initiated Nursing Unit Staff Notify [facility] of Tele-Neurology Consult: Yes Reason For Visit: BRAIN INFARCT Diagnosis Discharge Diagnosis (1) Focal infarction of brain: Status: Acute Code(s): I63.9 - Cerebral infarction, unspecified Plan 1. Ischemic stroke in the left MCA territory-left temporal lobe occipital lobe #2 alcoholic cardiomyopathy #3 essential hypertension #4 type 2 diabetes #5 behavioral disorder Medications at Discharge Home Medications amlodipine 10 mg tablet 10 mg PO DAILY 04/25/25 aspirin 81 mg tablet,delayed release 81 mg PO DAILY 04/25/25 atorvastatin 20 mg tablet 20 mg PO DAILY 04/25/25 digoxin 125 mcg (0.125 mg) tablet 125 mcg PO DAILY 04/25/25 lisinopril 40 mg tablet 40 mg PO DAILY 04/25/25 metformin 500 mg tablet 500 mg PO BID 04/25/25 metoprolol succinate 200 mg tablet,extended release 24 hr 200 mg PO DAILY 04/25/25 Hospital Course Operations None Summary of Care Provided Minutes Spent on Discharge: 31 Hospital Course: This 69-year-old male was seen in the emergency room at [facility] for confusion and bizarre behavior. Patient was unable to provide any history, patient was brought in by family friend who helps care for himself. Patient has a history of daily alcohol intake-approximately 2 tall boys daily. During the patient's workup in the emergency room, he became agitated and took his IV out and was asking to leave. The emergency room physician did not feel the patient had the capacity to make that decision, IM Haldol was given, patient underwent a head and neck CTA which showed a large left temporoparietal infarction but no significant head or neck vascular stenosis, he was admitted to PCU. On PCU, patient refused further testing (MRI and echocardiogram) he was seen in consultation by teleneurology. Due to the patient's persistent behavioral outburst and aggressive behavior, it was felt that he would benefit from admission to a psychiatric facility for stabilization. I filled out the pink slip papers on the patient on 04/27/2025. On that day, patient was seen and examined: On examination he appeared confused and aggressive at time. Vital signs as documented. Skin warm and dry and without overt rashes. Neck without JVD, neck was supple, trachea midline, thyroid was normal. Lungs clear bilaterally, normal air movement was noted. Heart exam notable for regular rhythm, normal sounds and absence of murmurs, rubs or gallops. Abdomen unremarkable and without evidence of organomegaly, masses, or abdominal aortic enlargement. Bowel sounds are present, abdomen is not distended. Extremities nonedematous, no cyanosis was noted, no clubbing was noted. Neuro: Cranial nerves II through XII are grossly intact, no focal motor deficits were noted, sensation to light touch and pinprick intact, motor exam 5/5 throughout. Psych: Patient is alert, he became aggressive at times, he does not appear anxious or depressed. Patient was transferred to a psychiatric facility for further care on 04/28/2025. Weight / BMI Weight Weight: 102.1 kg Body Mass Index (BMI) 27.3 ABG / Lab / Microbiology Data 04/25/25 11:30 04/25/25 11:30 Laboratory: Laboratory Results - last 24 hr 04/25/25 13:55: Urine Color Yellow, Urine Clarity Clear, Urine pH 6.0, Ur Specific [place] 1.010, Urine Protein Negative, Urine Glucose (UA) 100 H, Urine Ketones Negative, Urine Occult Blood Negative, Urine Nitrite Negative, Urine Bilirubin Negative, Urine Urobilinogen Normal, Ur Leukocyte Esterase Negative, Urine RBC 0 SEEN, Urine WBC 0 SEEN, Ur Squamous Epith Cells 0 SEEN, Urine Bacteria 0 SEEN, Urine Mucus 0 SEEN 04/26/25 18:06: POC Glucose 122 H D/C Instructions DC O2, CPAP, BIPAP Needs Home O2 Discharge instructions: No Meaningful Use Info Meaningful Use Meaningful Use Diagnoses (Choose all that apply): Ischemic CVA CVA Therapy Assessed for PT,OT and/or ST?: Yes Ischemic Stroke Antithrombotic order at d/c?: No Reason antithrombotic not ordered: Drug Declined by Patient Dx of Atrial fib/flutter?: No Anticoagulant at discharge?: No Reason anticoagulant not ordered: Drug Declined by Patient Statins at discharge?: No Reason Statin not ordered: Drug Declined by Patient If patient is 75 or younger, pt will be discharged on HIGH intensity statin.: No High intensity statin for patient 75 or younger not ordered due to: Declined by patient Primary Dx Acute Ischemic CVA?: Yes IV thrombolytic ordered during stay?: No Reason IV thrombolytic not ordered: Treatment not Indicated Discharge Plan Admission Admit Date/Time: 04/25/25 12:01 Attending Provider: Jaden Benítez Primary Care Provider: Terry Plata Consulting Providers: Boubacar Dixon; Fernando Lopez; Maya Gee; Lisa Dickey; Kaitlyn Perdomo; Cliff Urias; Lian Ibanez; Raul Tejada; Ferdinand Marinelli; Conner Downs; Ronda Sparks; Andria Rose; Artem Givens; Netta Avitia; Lucy Downs; Junito Choudhary; Drew Duque; Lefty Conti; Guillermo Comer; Carlene Pompa; Georgina Krueger; Sea Ayala Discharge Orders/Prescriptions Prescriptions: No Action metformin 500 mg tablet 500 mg PO BID atorvastatin 20 mg tablet 20 mg PO DAILY metoprolol succinate 200 mg tablet extended release 24 hr 200 mg PO DAILY aspirin 81 mg tablet,delayed release (DR/EC) 81 mg PO DAILY amlodipine 10 mg tablet 10 mg PO DAILY digoxin 125 mcg (0.125 mg) tablet 125 mcg PO DAILY lisinopril 40 mg tablet 40 mg PO DAILY Referrals / Follow Up: Terry Plata MD [Primary Care Provider, Medical] Disposition Disposition (needs filled in before D/C Order can be placed): [facility] Facility Charges/Coding Visit Charges Inpatient E&M: 46758 Disch Hosp >30min
== END 2025-04-27 12:32 | DRG 65 ==
LOC: ED 11:56 → PCU 14:47
PROVIDERS: Admitting Provider Internal Medicine; Emergency Provider Student in an Organized Health Care Education/Training Program; PCP Family Medicine; Visit Provider Internal Medicine
DX: I63.89 Other cerebral infarction (principal); E87.1 Hypo-osmolality and hyponatremia; I42.6 Alcoholic cardiomyopathy; E11.40 Type 2 diabetes mellitus with diabetic neuropathy, unspecified; D64.9 Anemia, unspecified; E83.42 Hypomagnesemia; I10 Essential (primary) hypertension; R63.4 Abnormal weight loss; F10.20 Alcohol dependence, uncomplicated; R47.1 Dysarthria and anarthria; R41.89 Other symptoms and signs involving cognitive functions and awareness; R29.705 NIHSS score 5; Z79.84 Long term (current) use of oral hypoglycemic drugs; Z79.899 Other long term (current) drug therapy; Z79.82 Long term (current) use of aspirin; Z87.891 Personal history of nicotine dependence; Z68.27 Body mass index [BMI] 27.0-27.9, adult; Z91.148 Patient's other noncompliance with medication regimen for other reason
CPT/HCPCS: 70496; 70498; 80048; 81001; 82077; 82140; 82962; 83036; 83735; 84443; 85025; 87086; 87088; 92526; 92610; 99284; Q9967; A4216